=== PATIENT | male | born 1955 | race Caucasian/White ===

== ENCOUNTER → 2017-04-22 | Outpatient (CLI) | payer OTHER ==
[~2017-04-22] MED LIST: GADAVIST IV PRN
--- NOTE | 2017-04-22 19:17 | DIAGNOSTIC IMAGING REPORT ---
BRAIN COMBO CLINICAL HISTORY: VERTIGO, UNSTEADY GAIT mental status change COMPARISON STUDY: No previous studies for comparison. TECHNIQUE: Utilizing a 1.5 Archana magnet and dedicated coil, multiplanar, multiecho imaging of the brain was performed pre and postcontrast administration. IV administration of 8.5 mL of Gadavist contrast was uneventful. FINDINGS: Diffusion images are negative for an acute ischemic event. Signal characteristics of the cerebellar as well as cerebral hemispheres are unremarkable. There are several small foci of increased signal within the periventricular deep white matter regions. These are considered unremarkable for age. Postcontrast images are considered negative for an enhancing lesion. Sella and parasellar regions are unremarkable. Internal auditory canals are unremarkable. IMPRESSION: Normal study. Normal internal auditory canals. The above report was generated using voice recognition software. It may contain grammatical, syntax or spelling errors. Electronically signed by: Castillo Olmedo M.D. 04/22/2017 7:15 PM Dictated Date/Time: 04/22/2017 7:11 PM
== END | disposition home or self-care (01) ==
LOC: C.MRI 18:02
PROVIDERS: ATTEND Internal Medicine
DX: R42 Dizziness and giddiness (principal); R26.81 Unsteadiness on feet